=== PATIENT | female | born 2000 ===

== ENCOUNTER 2024-07-03 17:26 | Emergency (ER) | payer OTHER, SELFPAY ==
[2024-07-03 17:35] VITALS: BP 138/83
[2024-07-03 18:30] LABS: % Basophils 0.7 % (0-2); % Eosinophils 6.2 % (0-6); % Lymphocytes 26.4 % (20.5-51.1); % Monocytes 10.6 % (1.7-9.3); % Neutrophils 55.1 % (42.2-75.2); Absolute Basophils 0.1 10^3/uL (0-0.2); Absolute Eosinophils 0.6 10^3/uL (0-0.7); Absolute Immature Granulocytes 0.1 10^3/uL (0-0.05); Absolute Lymphocytes 2.6 10^3/uL (1.2-3.4); Absolute Neutrophils 5.4 10^3/uL (1.4-6.5); Hematocrit 32.8 % (37.0-47.0); Hemoglobin 10.9 g/dL (12.0-16.0); Mean Corp Hgb Conc. 33.2 g/dL (33.0-37.0); Mean Corpuscular Hgb 27.4 pg (27.0-31.0); Mean Corpuscular Volume 82.4 fL (81.0-99.0); Mean Platelet Volume 9.4 fL (7.4-10.4); Nucleated Red Blood Cells % 0 %; Platelet Count 284 10^3/uL (130-400); Red Blood Cell Count 3.98 10^6/uL (4.20-5.40); Red Cell Dist. Width 14.1 % (11.5-14.5); White Blood Cell Count 9.8 10^3/uL (4.8-10.8)
[2024-07-03 18:31] LABS: Urine Albumin Negative (Neg - Trace); Urine Bilirubin Negative (Negative); Urine Character Clear (Clear); Urine Color Yellow; Urine Glucose Negative (Negative); Urine Ketone Negative (Negative); Urine Leukocyte Trace (Negative); Urine Nitrite Negative (Negative); Urine Occult Blood Negative (Negative); Urine Urobilinogen Negative (Neg - 1+); Urine pH 6.5 (5.0-9.0)
[2024-07-03 18:45] LABS: ALT (SGPT) 65 U/L (0-35); AST (SGOT) 44 U/L (14-36); Albumin 4.1 g/dl (3.5-5.0); Alkaline Phosphatase 93 U/L (38-126); Blood Urea Nitrogen 21 mg/dl (7-17); Calcium 9.2 mg/dl (8.4-10.2); Carbon Dioxide 21 mmol/L (22-30); Chloride 107 mmol/L (98-107); Glucose 100 mg/dl (70-99); Potassium 4.3 mmol/L (3.5-5.1); Sodium 135 mmol/L (135-145); Total Bilirubin 0.2 mg/dl (0.2-1.3); Total Protein 6.5 g/dl (6.3-8.2); eGFR > 60.00
[2024-07-03 18:49] LABS: Urine Squamous Cell >30 /LPF (Few)
--- NOTE | 2024-07-03 18:50 | ED.GENMED ---
History of Present Illness
General
Chief Complaint: Abnormal Lab Value
Source: patient
Exam Limitations: none
Time Seen by Provider: 07/03/24 18:33
History of Present Illness
History of Present Illness:
This is a 24 year old female that comes in with c/o elevated WBC's. States that she had blood work taken about a week ago. States that she was told that her WBC where elevated so they sent her her for evaluation. Patient stats that she is a C[facility]. States that she has had diarrhea for months and that the doctor there is aware of this. States that she also gets nauseated after eating. States that this may all be due to her mediation. States that she has a headache. Denies
any fever, chills, chest pain, SOB, abd pain, vomiting, dizziness, urinary burning.
Past History
Past History
ED Past Medical History: Psychiatric (Anxiety, Autism, Biplar, Depression, Panic disorder. Substance abuse, Suicidal attempts. ); Negative Asthma, HTN, Hypercholesterolemia or NIDDM
ED Past Surgical History: Cholecystectomy
Social History
Tobacco: Smoker
Alcohol: None
Personal: Single
Living: other ([facility])
Review of Systems
Review of Systems
All Other Systems: ROS reviewed and negative except as documented in HPI and ROS
Constitutional: Reports no symptoms; Denies fever or chills
EENT: Reports no symptoms
Respiratory: Reports no symptoms; Denies cough or trouble breathing
Cardiac: Reports no symptoms; Denies chest pain
ABD/GI: Reports nausea and diarrhea; Denies abdominal pain or vomiting
: Reports no symptoms; Denies dysuria, frequency or urgency
Musculoskeletal: Reports no symptoms
Skin: Reports no symptoms
Neurological: Reports headache; Denies dizzy
Psychiatric: Reports no symptoms
Phy Exam
General Physical Exam
General Presentation: well appearing (Patient asking if she can go home) and no apparent distress
General age: appears stated age
General Skin: warm and dry
General Habitus: normal
General Mental: alert
General Hydration: appears well hydrated
ENT Exam
ENT Exam: TM's normal, pharynx normal and neck supple
Eye Exam
Eye Exam: EOMI
Cardiovascular Exam
Cardiovascular Exam: regular rate/rhythm, no edema, no gallop, no JVD, no murmur and normal peripheral pulses
Pulmonary Exam
Pulmonary Exam: lungs clear, no respiratory distress, no rales, chest non tender, no crackles, no rhonchi, no wheezing and no cough
Gastrointestinal Exam
Gastrointestinal Exam: normal bowel sounds, non tender, soft, no organomegaly, no pulsatile mass and non distended
Musculoskeletal Exam
Musculoskeletal Exam: full ROM and no edema
Skin Exam
Skin Exam: normal color, warm/dry, no rash and no petechia
Psychiatric Exam
Psychiatric Exam: normal mood/affect
Course
Orders/Labs/Results
Orders:
Orders
07/03/24 17:34
Test Result ONCE
07/03/24 18:21
Complete Blood Count/With Diff Urgent
Comprehensive Metabolic Panel Urgent
HCG, Serum Qualitative Screen Urgent
Comment: Notify provider if positive test present
07/03/24 18:23
Urinalysis Reflex To Culture Urgent
Date Specimen was Collected: 07/03/24
Time Specimen was Collected: 17:34
Urine Microscopic Reflex Cult Urgent
Abnormal Lab Results
07/03/24 07/03/24
18:21 18:23
RBC 3.98 L 10^6/uL
(4.20-5.40)
Hgb 10.9 L g/dL
(12.0-16.0)
Hct 32.8 L %
(37.0-47.0)
Abs Immat Gran (auto) 0.1 H 10^3/uL
(0-0.05)
Absolute Monos (auto) 1.0 H 10^3/uL
(0.1-0.6)
Immature Gran % 1.0 H %
(0-0.5)
Monocytes % 10.6 H %
(1.7-9.3)
Eosinophils % 6.2 H %
(0-6)
Carbon Dioxide 21 L mmol/L
(22-30)
BUN 21 H mg/dl
(7-17)
Glucose 100 H mg/dl
(70-99)
AST 44 H U/L
(14-36)
ALT 65 H U/L
(0-35)
Leukocyte Esterase Rfl Trace A
(Negative)
07/03/24 18:21
07/03/24 18:21
WBC normal. H/H low. Slight Dehydration. Glucose nonfasting. AST/ALT mildly elevated. Urine negative for infection.
Vital Signs
Initial and Last Documented VS:
Initial Vital Signs
Temp Pulse Resp BP Pulse Ox
98.1 F 103 18 138/83 99
07/03/24 17:35 07/03/24 17:35 07/03/24 17:35 07/03/24 17:35 07/03/24 17:35
Last Documented Vital Signs
Temp Pulse Resp BP Pulse Ox
98.1 F 103 18 138/83 99
07/03/24 17:35 07/03/24 17:35 07/03/24 17:35 07/03/24 17:35 07/03/24 17:35
MDM/Problems Addressed
Differential Diagnosis Includes:
abnormal labs, Lab recheck
MDM/Problems Addressed:
This is a 24 year old female that comes in with c/o having blood work done a week ago and she was told that her WBC were elevated. Patient here for a lab check.
Labs drawn.
Explained to patient that her WBC are normal. Patient is very slightly dehdyrated and her liver enzymes are slightly elevated which may be due to medication. Patient to follow up with the Family doctor. Return with any concerns.
Chronic conditions affecting care: Psychiatric illness
Acute Exacerbation and/or Progression of Chronic Illness: Psychiatric illness
*Pulse Oximetry
Patient hypoxic: no
*EKG
Interpreted by ED Provider?: NA
Rate: EKG- N/A
*Director Of Outside Sales Interpretation
Rate: Director Of Outside Sales- N/A
*Critical Care Note
Total Time (30-74mins, 75-104mins- exclusive of procedures): Not Applicable
ED Attending Note
-
Portions of this chart may have been created with voice recognition software.� Occasional wrong word or��sound alike� substitutions may have occurred due to the inherent limitations of voice recognition software.
Discharge Plan
Departure
Patient Disposition: Home (Routine Discharge)
Date of Disposition: 07/03/24
Time of Disposition: 18:59
Patient with high blood pressure during this ER visit?: Yes
Condition: Good
Covid-19: Not Applicable
Discharge Problem:
Lab check
Instructions: BLOOD PRESSURE
Referrals:
NONE,* [Family Provider] -
Activity Restrictions/Additional Instructions:
As discussed, your blood work shows that your WBC are normal. You are very slightly Dehydrated. Please increase your water intake to 8-8oz glasses daily. Your liver enzymes are slightly elevated and this may be due to medication that you are
taking. Your urine is negative for infection. Please follow up with the family doctor for recheck. IF YOU HAVE ANY OTHER CONCERNS PLEASE RETURN TO THE EMERGENCY ROOM.
Interventions
Interventions:
*Risk Screen - Suicide Last Done: 07/03/24 17:35
*General Assessment Last Done: 07/03/24 17:35
*Neglect/Abuse Screening Last Done: 07/03/24 17:35
*ED COVID-19 Vaccine History Last Done: 07/03/24 17:35
Discharge Date and Time
Print Language: MALDIVIAN
[2024-07-03 18:51] LABS: Urine Bacteria Few (Negative); Urine Red Blood Cell 0-2 /HPF (0-2)
[2024-07-03 19:10] VITALS: BP 129/76
[2024-07-03 19:12] VITALS: BP 129/76
[2024-07-03 20:31] LABS: HCG, Serum Qualitative Screen Negative
== END 2024-07-03 19:13 | disposition home or self-care (01) ==
LOC: EMR 17:26
PROVIDERS: Emergency Medicine; EMERGENCY PHYSICIAN Emergency Medicine
DX: Z01.89 Encounter for other specified special examinations (principal); R03.0 Elevated blood-pressure reading, without diagnosis of hypertension; F17.200 Nicotine dependence, unspecified, uncomplicated; F84.0 Autistic disorder
CPT/HCPCS: 99283; 80053; 81003; 81015; 84703; 85025